=== PATIENT | female | born 1975 | race Caucasian/White ===

== ENCOUNTER 2018-07-17 05:23 | Day surgery (SDC) | payer OTHER ==
[~2018-07-17] VITALS: Ht 167.6 cm; Wt 83.9 kg
--- NOTE | ~2018-07-17 | O ---
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 PROCEDURE: Left upper lid retraction, repair with left temporary tarsorrhaphy. SURGEON: Omar Humphrey M.D. CARPENTER PROTOTYPE: None. ANESTHESIA: MAC. COMPLICATIONS: None. INDICATIONS FOR SURGERY: This pleasant 43-year-old woman has a congenital left-sided myogenic ptosis that was previously addressed surgically. She has unfortunately recently experienced progressive deterioration in her ocular surface that appears to be at least in part related to her chronic nocturnal lagophthalmos and incomplete blink. She presents today for a left upper lid retraction repair in order to attempt to improve her ocular closure and allow her cornea an opportunity to heal and reduce her risk for loss of the eye. Informed consent was obtained to include but not limited to the potential risk for loss of vision, bleeding, infection, failure to improve the problem, and the almost certain need for further treatment after the cornea heals in order to allow her the ability to open the eye. DESCRIPTION OF PROCEDURE: The patient was taken to the operating room where 2% Xylocaine with epinephrine mixed with equal parts of 0.75% Marcaine with Wydase was administered transcutaneously and transconjunctivally to the upper and lower lids on the left side. The patient was subsequently prepped and draped in the usual sterile fashion. A fine tip skin marking pen was then utilized to outline an upper lid crease incision that was 12 mm above the mature lashes. Her previous incision was at 8 mm above the lashes and was thought to be too low to be functional at her age. The incision was then made with a Ananda scissor. [address] [address] OPERATIVE REPORT Name: HARJITSUNITHANEMO Franks Room #: DEP [facility].#: [id number] Admission: 07/17/18 Attend Phys: Omar Humphrey MD Discharge: 07/17/18 Date of : 71 Report #: [id number] Relatively dense scarring was encountered almost immediately. The plane of the orbital septum was then transected with a monopolar cutting current to get back to the level of the preaponeurotic fat pad, which was also densely scarred. This was opened up across the width of her lid. An incision was then made through the pretarsal orbicularis muscle down on to the tarsal plate. The upper lid retractors were then recessed back to the level of what would ordinarily have been Whitnall ligament. It appeared that she had had Whitnall ligament previously attached to the superior border of the tarsal plate, which was also surgically shortened. The retractors were released completely across the width of the lid without violating the conjunctival surface. The upper lid crease was then reformed with interrupted 6-0 chromic sutures. The skin was closed with 6-0 plain gut sutures. A temporary tarsorrhaphy was then fashioned from a short section of IV tubing and a double arm 5-0 nylon pass. It was placed in the central portion of the lid. The wounds were then cleaned and dressed with erythromycin ophthalmic ointment. The patient subsequently transported to the recovery area having tolerated the procedures well with no anesthetic or operative complications being noted. <ELECTRONICALLY SIGNED> By: Omar Humphrey MD 07/21/18 0619 [id number] Omar Humphrey MD /nt
[~2018-07-17 05:23] MED LIST: AMITRIPTYLINE H25 M2 PO
[2018-07-17 09:59] VITALS: BP 104/73
== END 2018-07-17 11:50 | disposition home or self-care (01) ==
LOC: OR 05:23 → TBA 05:24 → OR 11:42
DX: H02.534 Eyelid retraction left upper eyelid (principal); H02.20 Unspecified lagophthalmos; H18.9 Unspecified disorder of cornea; G43.809 Other migraine, not intractable, without status migrainosus; Z90.49 Acquired absence of other specified parts of digestive tract; Z98.890 Other specified postprocedural states; Z86.2 Personal history of diseases of the blood and blood-forming organs and certain disorders involving the immune mechanism; Z88.6 Allergy status to analgesic agent; Z79.899 Other long term (current) drug therapy
CPT/HCPCS: 50010; 50101; 50386; 50398; 51636; 56527; 56531; 62110; 62850; 70005

== ENCOUNTER 2019-07-23 07:38 | Day surgery (SDC) | payer OTHER ==
[~2019-07-23] VITALS: Ht 167.6 cm; Wt 81.6 kg
[~2019-07-23 07:38] MED LIST changes: +DULOXETINE HCL30 MG PO; +ELETRIPTAN HBR40 MG PO; +VITAMIN D350 MC2 PO
--- NOTE | 2019-07-27 06:22 | O ---
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 SURGEON: Omar Humphrey MD. MAINTENANCE DISPATCHER: None. ANESTHESIA: MAC. COMPLICATIONS: None. PROCEDURE: Left upper lid retraction repair. INDICATIONS FOR PROCEDURE: This pleasant 44-year-old woman has had a congenital left upper lid ptosis repair. This served her well for many years. Unfortunately, she is experiencing progressive corneal decompensation from the increase palpebral aperture from that prior intervention. She presents today for an additional left upper lid retraction repair as the previous retraction repair of that she had undertaken, while serving her visually quite well, has not achieved resting of her progressive corneal decompensation. She presents today in order to lower the left upper lid even further in order to attempt to preserve her globe. Informed consent was obtained to include but not limited to the potential risk for loss of vision, bleeding, infection, failure to improve the problem, the potential need for further surgery or treatment. DESCRIPTION OF PROCEDURE: The patient was taken to the operating room where 2% Xylocaine with epinephrine mixed with equal parts 0.75% Marcaine with Wydase was administered transcutaneously to the left upper lid. The patient was then prepped and draped in the usual sterile fashion. The fine tip skin marking pen was then utilized to outline the left upper lid crease incision. The incision was then made with a Ananda scissor and hemostasis was achieved with diligent pinpoint monopolar cautery. The dissection was then carried down through the orbicularis muscle and through the orbital septum until the preaponeurotic fat [address] [address] OPERATIVE REPORT Name: MIGUELINA LOMBARDI Room #: DEP [facility].#: [id number] Admission: 07/23/19 Attend Phys: Omar Humphrey MD Discharge: 07/23/19 Date of : 71 Report #: [id number] was identified. It was then teased free from the levator aponeurosis. The levator tendon was then disinserted from the anterior surface of tarsal plate across the medial 2/3rd of the left upper lid. It was then recessed in a graded fashion until the left upper lid position was lowered to position and was thought to be adequate. The wound having been dried, the incision was then closed with 6-0 plain gut sutures. The wounds were then cleaned and dressed with erythromycin ointment. The patient subsequently transported to the recovery area having tolerated the procedures well with no anesthetic or operative complications being noted. <ELECTRONICALLY SIGNED> By: Omar Humphrey MD 07/27/19 0622 [id number] Omar Humphrey MD /nt
== END 2019-07-23 10:45 | disposition home or self-care (01) ==
LOC: OR 07:38 → TBA 07:42 → OR 07:43
DX: H02.534 Eyelid retraction left upper eyelid (principal); H18.892 Other specified disorders of cornea, left eye; G43.909 Migraine, unspecified, not intractable, without status migrainosus; Z98.890 Other specified postprocedural states; Z79.899 Other long term (current) drug therapy; Z90.49 Acquired absence of other specified parts of digestive tract; Z86.2 Personal history of diseases of the blood and blood-forming organs and certain disorders involving the immune mechanism; Z88.8 Allergy status to other drugs, medicaments and biological substances
CPT/HCPCS: 50010; 50101; 50386; 50398; 51636; 56531; 62110; 62850; 70005